=== PATIENT | female | born 1950 | race Caucasian/White ===

== ENCOUNTER → 2016-05-31 | Day surgery (SDC) | payer BC ==
[~2016-05-31] MED LIST: DIFLUCAN PO; FARXIGA5 MG PO; FOLIC ACID1 MG PO; LORTAB 10/500 T1 TAB PO; MELOXICAM15 MG PO; METFORMIN PO; METHOTREXATE2.5 MG PO; NEURONTIN PO; ORENCIA125 MG/1 M SUBQ; PREDNISONE PO; PROTONIX PO; SERTRALINE HCL100 MG; SERTRALINE HCL100 MG PO; VENLAFAXINE HC225 MG PO; ZOLOFT; ZOLOFT PO
--- NOTE | ~2016-05-31 | OR ---
Unit #: [id number] #: [id number] Patient: MACKENZIE NUNEZ [id number] [address] [address] [id number] O MR#: [id number] NAME: MACKENZIE NUNEZ ROOM: Date of Procedure: 05/31/2016 Admission Date: 05/31/2016 Surgeon: Immanuel Munguia M.D. : 1950 Attending Physician: Immanuel Munguia M.D. Primary Care Physician: Kiara Evangelista A.P.R.N. OPERATIVE REPORT PROCEDURE PERFORMED Colonoscopy with biopsy. INDICATIONS FOR PROCEDURE The patient with personal history of colon cancer, family history of colon cancer, undergoing colonoscopy for surveillance. MEDICATION Monitored anesthesia. POSTOPERATIVE FINDINGS 1. Colonoscopy completed to cecum. No masses were seen. 2. Prep was good. 3. Minimal inflammation in the rectum distally right above the dentate line; biopsy was taken. PLAN 1. Follow up on pathology report. 2. Repeat colonoscopy in 3 years. DESCRIPTION OF PROCEDURE The patient was explained of the procedure, risks, and benefits along with the risks and benefits of anesthesia. She was brought to the endoscopy room. Propofol anesthesia was given. Rectal exam was done, which was normal. Colonoscope was lubricated, passed up the rectum, advanced under direct vision all the way to cecum. Cecum was identified by ileocecal valve and appendiceal orifice. Findings as described. Biopsy was taken from the rectum. Gently, the scope was pulled out. She tolerated it well. No major complications were seen. Dictated by... Michelle Fishman/gomez TD: 06/01/2016 04:58 JOB #: [id number] CC: Conrad Hillman M.D. Unit #: [id number] #: [id number] Patient: MACKENZIE NUNEZ OPERATIVE REPORT X Immanuel Munguia MD X PROCEDURE OPERATIVE NOTE
== END | disposition home or self-care (01) ==
LOC: COPS 08:33
DX: Z12.11 Encounter for screening for malignant neoplasm of colon (principal); K62.1 Rectal polyp; E11.9 Type 2 diabetes mellitus without complications; M06.9 Rheumatoid arthritis, unspecified; Z85.038 Personal history of other malignant neoplasm of large intestine; Z80.0 Family history of malignant neoplasm of digestive organs; Z88.0 Allergy status to penicillin; Z79.899 Other long term (current) drug therapy; Z90.49 Acquired absence of other specified parts of digestive tract; Z90.710 Acquired absence of both cervix and uterus; Z98.890 Other specified postprocedural states
CPT/HCPCS: 82947; 88305; J2250

== ENCOUNTER → 2016-06-05 | Outpatient (CLI) | payer BC ==
--- NOTE | ~2016-06-05 | CT57 ---
[facility] A Service of [facility] & [facility] RADIOLOGY TEXT RESULTS PATIENT: MACKENZIE NUNEZ [facility] [birth year] UNIT #: [id number] AGE: [address]: Kiara Evangelista APRN SEX: F ORDER DR: [id number] [facility] [address] [facility] [place], [place] [address] [id number] O MR#: [id number] Acc #: [id number] NAME: MACKENZIE NUNEZ : 1950 SEX: F STUDY DATE/TIME: 06/05/2016 12:51 UNIT: [facility] ROOM: STUDY DESCRIPTION: CT Chest Wo Cont Attending Physician: Kiara Evangelista A.P.R.N. Referring Physician: Kiara Evangelista A.P.R.N. Ordering Physician: Kiara Evangelista A.P.R.N. Primary Care Physician: Kiara Evangelista A.P.R.N. MEDICAL IMAGING REPORT This report is preliminary unless electronic signature is present EXAM CT of the chest. DATE OF EXAM 06/05/2016 HISTORY Short of air. Elevated hemidiaphragm, shortness of air. Prior history of colon cancer in 2008. Exsmoker. TECHNIQUE CT chest performed without administration of intravenous contrast. NOTE: This CT exam was performed with one or more of the following radiation dose reduction techniques: automatic exposure control, adjustment of mA and/or kV according to patient size, and iterative reconstruction. COMPARISON 07/08/2011 FINDINGS Thyroid unremarkable. No axillary, mediastinal or hilar adenopathy. Heart normal in size. Prominent coronary arterial calcifications. No pleural effusions. The liver is unremarkable. Status post cholecystectomy. No biliary obstruction. Spleen unremarkable. Visualized portions of spleen, pancreas, adrenal glands, kidneys unremarkable. No upper abdominal adenopathy. Hiatal hernia containing fat. Stable. No complication. Visualized esophagus and stomach, otherwise, unremarkable. Anterior-superior abdominal wall midline hernia containing only fat without complications. No significant change. No upper abdominal adenopathy. Stomach visualized small bowel and colon unremarkable. The lungs show underlying centrilobular emphysema. Subtle STS. [facility] A Service of [facility] & [facility] RADIOLOGY TEXT RESULTS PATIENT: MACKENZIE NUNEZ LOCATION: [facility] : 54 UNIT #: [id number] AGE: [address]: Kiara Evangelista APRN SEX: F ORDER DR: reticulonodular densities in the periphery of the right upper lobe stable and likely representing chronic interstitial change. Ill-defined ground-glass nodule in the right upper lobe measuring about 7-8 mm in diameter is new compared to prior examinations. Right lung otherwise clear. Densely calcified granuloma inferior lingular segment. There is an area of patchy slightly nodular airspace disease in the posterior-superior left lower lobe. The nodular components measure up to approximately 5-6 mm in diameter. Very ill-defined margins. Given appearance, infectious or inflammatory etiology favored. Short-interval followup in 3 months recommended to confirm resolution. These findings are not amenable to percutaneous sampling or assessment with CT/PET scan. No areas of dense airspace disease. The unopacified vascular structures show atherosclerotic arterial calcifications but appear of grossly normal caliber. Bony structures show no acute abnormality. 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 Luminal status unclear in the absence of intravascular contrast. IMPRESSION 1. Emphysema. 2. Ill-defined 7-8 mm ground-glass nodule in the periphery of the right upper lobe image #25. In the superior segment of the left lower lobe, there are some very ill-defined patchy and slightly nodular densities, the largest nodular component which measures 5-6 mm in diameter. I favor that these bilateral findings are of an infectious or inflammatory nature, but the patient gives a significant history of prior tobacco usage and the possibility of developing neoplasm while less likely is not excluded. These nodules are not amenable to characterization with CT/PET scan and are not amenable to percutaneous sampling. Short interval CT followup in 3 months is strongly recommended. If these findings persist, ongoing followup to full 2-year stability would be strongly recommended. Should the dominant nodules increase in size, some consideration for CT/PET scan at that juncture may be warranted. 3. No pleural effusion or pneumothorax. 4. Atherosclerotic arterial calcifications in coronary and systemic circulation. Heart size normal. 5. 1.9 cm rim-calcified distal splenic artery aneurysm unchanged from 2012. Luminal status unknown in the absence of intravascular contrast. 6. Stable hiatal hernia containing fat. Stable anterior midline upper abdominal wall hernia containing only fat without complications. 1. Dictated by... Jose Bradshaw M.D. THIS IS AN ELECTRONICALLY VERIFIED REPORT Jose Bradshaw M.D. at 06/06/2016 12:33 PM [facility] A Service of [facility] RADIOLOGY TEXT RESULTS PATIENT: MACKENZIE NUNEZ LOCATION: [facility] : 54 UNIT #: [id number] AGE: [address]: Kiara Evangelista APRN SEX: F ORDER DR: Pablito TD: 06/05/2016 15:43 JOB #: [id number] MEDICAL IMAGING REPORT COPY
== END | disposition home or self-care (01) ==
LOC: CCAT 12:18
DX: R06.02 Shortness of breath (principal); J98.6 Disorders of diaphragm; J43.9 Emphysema, unspecified; I72.8 Aneurysm of other specified arteries; I25.10 Atherosclerotic heart disease of native coronary artery without angina pectoris; K44.9 Diaphragmatic hernia without obstruction or gangrene; K46.9 Unspecified abdominal hernia without obstruction or gangrene
CPT/HCPCS: 71250

== ENCOUNTER → 2016-11-08 | Outpatient (CLI) | payer BC ==
--- NOTE | ~2016-11-08 | CT57 ---
[facility] A Service of [facility] & [facility] RADIOLOGY TEXT RESULTS PATIENT: MACKENZIE NUNEZ LOCATION: [facility] : 54 UNIT #: [id number] AGE: [address]: Kiara Evangelista APRN SEX: F ORDER DR: [id number] [facility] [address] [place], [place] [address] [id number] O MR#: [id number] Acc #: [id number] NAME: MACKENZIE NUNEZ : 1950 SEX: F STUDY DATE/TIME: 11/08/2016 13:42 UNIT: [facility] ROOM: STUDY DESCRIPTION: CT Chest Wo Cont Attending Physician: Kiara Evangelista A.P.R.N. Referring Physician: Kiara Evangelista A.P.R.N. Ordering Physician: Kiara Evangelista A.P.R.N. Primary Care Physician: Kiara Evangelista A.P.R.N. MEDICAL IMAGING REPORT This report is preliminary unless electronic signature is present EXAM CT scan of the chest without contrast INDICATION Follow up pulmonary nodule. COMPARISON 06/05/2016, 07/08/2011, 07/11/2010. TECHNIQUE Axial 2 mm images were obtained through the chest without contrast. Sagittal and coronal reconstructions were generated. This CT examination was performed with one or more of the following radiation dose reduction techniques: automatic exposure control, adjustment of mA and/or kV according to patient size, and iterative reconstruction. FINDINGS The fuzzy, ground glass nodule in the right upper lobe laterally is unchanged. It is on image 58. It is about 8 mm in maximum dimension. The patchy areas of ground glass density that were present in the left lower lobe on the previous study have resolved. The lungs are otherwise clear except for a calcified lingular granuloma. The thyroid gland is normal. The aorta is normal in size. There is no mediastinal or hilar adenopathy. There is a small hiatal hernia. The visualized portions of the upper abdomen again show the peripherally densely calcified splenic artery aneurysm that measures 18 mm in size and that has been present since 2011. IMPRESSION 1. Patchy densities left lower lobe superior segment have resolved. 2. The ground glass nodular density in the right upper lobe laterally is unchanged. It is about 8 mm in diameter. This has been a 4 month STS. [facility] A Service of [facility] RADIOLOGY TEXT RESULTS PATIENT: MACKENZIE NUNEZ LOCATION: [facility] : 54 UNIT #: [id number] AGE: [address]: Kiara Evangelista APRN SEX: F ORDER DR: follow up. I would recommend a repeat unenhanced CT scan in 6 months. 3. No change splenic artery aneurysm. Dictated by... Dhaval Rodas M.D. THIS IS AN ELECTRONICALLY VERIFIED REPORT Dhaval Rodas M.D. at 11/09/2016 10:51 AM CHRISSY/elias TD: 11/09/2016 09:59 JOB #: [id number] MEDICAL IMAGING REPORT Page 1 of 1 COPY
== END | disposition home or self-care (01) ==
LOC: CCAT 13:11
DX: R91.1 Solitary pulmonary nodule (principal)
CPT/HCPCS: 71250